=== PATIENT | female | born 1985 | race Caucasian/White ===

== ENCOUNTER 2017-03-08 18:00 | Emergency (ER) | payer MEDICAID, OTHER ==
[~2017-03-08] VITALS: Wt 89.0 kg
[~2017-03-08 18:00] MED LIST: ADVIL
--- NOTE | 2017-03-08 18:18 | ERD ---
ER Documentation Chief Complaint Date/Time DATE: 03/08/17 TIME: 18:15 Chief Complaint RIGHT MIDDLE TOE PAIN FROM THIS MORNING. MILD DISCOLORATION HPI Patient is a 31-year-old female presents to the emergency department with right middle toe pain which started this morning. Patient states that she was going up the stairs when she accidentally stubbed her toe on the concrete stair. Patient reports bruising to the affected toe. Patient any previous injuries to the affected area. Patient denies any pain medication. Patient is able to ambulate however she does report a limp. Patient denies any fevers or chills. Patient denies any previous fractures to the affected extremity. ROS All systems reviewed and are negative except as per history of present illness. Medications Home Meds Active Scripts Ibuprofen* (Motrin*) 600 Mg Tab, 600 MG PO Q6, #30 TAB Prov:KALYANI WHITE PA-C 03/08/17 Reported Medications [Advil] No Conflict Check 06/26/11 Allergies Allergies: Coded Allergies: No Known Allergies (Verified Allergy, Unknown, 03/08/17) PMhx/Soc Medical and Surgical Hx: pt denies Medical Hx, pt denies Surgical Hx Hx Miscellaneous Medical Probl: Yes (DENIES MEDICAL PROBLEMS) Hx Alcohol Use: No Hx Substance Use: No Hx Tobacco Use: No Smoking Status: Never smoker FmHx Family History: No diabetes Physical Exam Vitals Vital Signs Date Time Temp Pulse Resp B/P Pulse Ox O2 Delivery O2 Flow Rate FiO2 03/08/17 18:05 98.5 101 21 137/84 97 Physical Exam GENERAL: Well-developed, well-nourished female. Appears in no acute distress. HEAD: Normocephalic, atraumatic. EYES: Pupils are equally reactive bilaterally. EOMs grossly intact. No conjunctival erythema. ENT: Moist mucous membranes. No uvula deviation. No kissing tonsils. NECK: Supple. No meningismus. Normal range of motion of the neck. LUNG: Clear to auscultation bilaterally. No rhonchi, wheezing, rales or coarse breath sounds. HEART: Regular rate and rhythm. No murmurs, rubs or gallops. BACK: No midline tenderness. EXTREMITIES: Equal pulses bilaterally. No peripheral clubbing, cyanosis or edema. No unilateral leg swelling. NEUROLOGIC: Alert and oriented. Moving all four extremities without any difficulty. Normal speech. Steady gait. SKIN: Normal color. Warm and dry. No rashes or lesions. RIGHT FOOT: No obvious deformity. Swelling and ecchymosis noted to the distal aspect of the third toe. Skin intact. Full range of motion of the ankle and knee. Tender to palpation of the third toe. Nontender palpation of the ankle, midfoot, tib-fib. Neurovascularly intact. (Able to plantarflex, dorsiflex, vannessa foot, invert foot, raise big toe.) 2+ DP and DT pulses. Results 24 hrs Current Medications Medications (Trade) Dose Ordered Sig/Beni Route PRN Reason Start Time Stop Time Status Last Admin Dose Admin Ibuprofen (Motrin) 600 mg ONCE ONCE PO 03/08/17 19:30 03/08/17 19:31 DC 03/08/17 19:26 Procedures/MDM ED COURSE: The patient was stable throughout ED course. I kept the patient and/or family informed of laboratory and diagnostic imaging results throughout the ED course. DIAGNOSTIC IMAGING: Read by radiologist. DIAGNOSTIC IMAGING REPORT Patient: NARCISO FRIED : 1985 Age: 31 Sex: F MR #: [id number] DOS: 03/08/17 1818 Ordering MD: KALYANI WHITE PA-C Location: [facility] Room/Bed: PROCEDURE: Right foot series CLINICAL INDICATION: Right third toe and diffuse pain status post trauma TECHNIQUE: Three views. COMPARISON: None FINDINGS: No fractures are noted. The soft tissues are unremarkable. Joint spaces are well maintained. No erosions are noted. IMPRESSION: 1. No acute fractures or dislocations are present. RPTAT: HDC .Yadira Gan MD, Date Time Electronically viewed and signed by .Yadira Gan MD, on 03/08/2017 19: 18 .C/ CC: KALYANI WHITE PA-C MEDICATIONS GIVEN: Ibuprofen MEDICAL DECISION MAKING: This is a 31-year-old female presents with right third toe pain after stubbing it on the concrete stairs. Vital signs were reviewed. Patient was afebrile. Imaging of the right foot showed no acute fractures or dislocations. Patient was given a walking shoe for comfort measures. RICE Therapy was discussed with the patient. Given these findings, the patient's presentation is most consistent with toe sprain. I have a much lower clinical concern for ankle dislocation, tarsal bone fracture, metatarsal fracture, phalangeal fracture, stress fracture, lisfranc injury, gout, septic joint, reactive arthritis, psoriatic arthritis, DVT, compartment syndrome, plantar fasciitis. At this time, unable to rule out any tendon and ligament injuries. PRESCRIPTIONS: Ibuprofen DISCHARGE: At this time, patient is stable for discharge and outpatient management. RICE therapy advised. I have instructed the patient to follow-up with his/her primary care physician in 1-2 days. I have discussed with the patient the possibility of needing to see an learning specialist for further workup and imaging if the pain persists. I have instructed the patient to promptly return to the ER for any new or worsening symptoms including increased pain, swelling, redness, warmth or fever. The patient and/or family expressed understanding of and agreement with this plan. All questions were answered. Home care instructions were provided. Departure Diagnosis: Primary Impression: Toe injury Encounter type: initial encounter Laterality: right Qualified Code: S99.921A - Toe injury, right, initial encounter Condition: Stable Patient Instructions: Fracture, Toe (Open) Additional Instructions: Call your primary care doctor TOMORROW for an appointment during the next 1-2 days.See the doctor sooner or return here if your condition worsens before your appointment time. She will need to follow-up with an learning specialist for further management of her symptoms. KALYANI WHITE PA-C March 08, 2017 18:18
--- NOTE | 2017-03-08 19:18 | RADRPT ---
PROCEDURE: Right foot series CLINICAL INDICATION: Right third toe and diffuse pain status post trauma TECHNIQUE: Three views. COMPARISON: None FINDINGS: No fractures are noted. The soft tissues are unremarkable. Joint spaces are well maintained. No e rosions are noted. IMPRESSION: 1. No acute fractures or dislocations are present. RPTAT: HDC .Yadira Gan MD, MD Date Time Electronically viewed and signed by .Yadira Gan MD, on 03/08/2017 19:18 .C/
[2017-03-08] MEDS ORDERED: IBUPROFEN 600 MG TAB PO ONE (19:30)
[2017-03-08] MEDS ORDERED: IBUP-1542 PO (19:57)
== END 2017-03-08 20:13 | disposition home or self-care (01) ==
LOC: FTE 18:00
DX: S99.921A Unspecified injury of right foot, initial encounter (principal); X50.9XXA Other and unspecified overexertion or strenuous movements or postures, initial encounter; Y92.9 Unspecified place or not applicable
CPT/HCPCS: 73630; Z7610

== ENCOUNTER 2017-05-05 22:39 | Emergency (ER) | END 2017-05-05 23:04 | disposition home or self-care (01) | DX: L55.9 Sunburn, unspecified (principal) ==

== ENCOUNTER 2018-09-04 20:21 | Emergency (ER) | END 2018-09-05 00:56 | disposition home or self-care (01) ==

== ENCOUNTER 2018-10-03 07:08 | Emergency (ER) | END 2018-10-03 08:35 | disposition home or self-care (01) ==